=== PATIENT | female | born 1990 | race Caucasian/White ===

== ENCOUNTER 2024-10-16 22:32 | Emergency (ER) | payer MEDICAID ==
[~2024-10-16] VITALS: Ht 172.7 cm; Wt 110.8 kg
[2024-10-16 23:19] LABS: ALANINE AMINOTRANSFERASE 72 U/L (12-78); ALBUMIN 3.5 G/DL (3.4-5.0); ALBUMIN/GLOBULIN RATIO 0.9 (1.1-1.5); ALKALINE PHOSPHATASE 88 IU/L (46-116); ANION GAP 13 (8-16); ASPARTATE AMINO TRANSFERASE 69 U/L (10-37); BILIRUBIN,TOTAL 0.3 MG/DL (0.1-1.0); BLOOD UREA NITROGEN 7 MG/DL (7-18); BUN/CREATININE RATIO 9.2 (10.0-20.0); CALCIUM 9.1 MG/DL (8.5-10.1); CHLORIDE 99 MMOL/L (99-107); CREATININE 0.76 MG/DL (0.40-0.90); GLUCOSE 153 MG/DL (70-104); POTASSIUM 4.1 MMOL/L (3.5-5.1); SODIUM 138 MMOL/L (135-145); TOTAL CARBON DIOXIDE 26.3 MMOL/L (24-32); TOTAL PROTEIN 7.5 G/DL (6.4-8.2); eCRCL 107 ML/MIN; eGFR 88 ML/MIN
[2024-10-16 23:28] LABS: BASOPHILS # (AUTO) 0.1 X10'3 (0-0.2); BASOPHILS % (AUTO) 0.7 % (0-1); EOSINOPHILS # (AUTO) 0.1 X10'3 (0-0.9); EOSINOPHILS % (AUTO) 1.8 % (0-6); HEMOGLOBIN 9.9 g/dl (12.0-16.0); LYMPHOCYTES # (AUTO) 2.6 X10'3 (1.1-4.8); MEAN CORPUSCULAR HEMOGLOBIN 28.7 PG (27.0-31.0); MEAN CORPUSCULAR VOLUME 84.3 FL (78-98); MEAN PLATELET VOLUME 7.5 FL (7.4-10.4); MONOCYTES # (AUTO) 0.6 X10'3 (0-0.9); NEUTROPHILS % (AUTO) 54.5 % (42-75); PLATELET COUNT 339 X10'3 (140-440); RED BLOOD COUNT 3.44 X10'6 (4.20-5.60); RED CELL DISTRIBUTION WIDTH 14.1 % (11.5-14.5); WHITE BLOOD COUNT 7.4 X10'3 (4.5-11.0)
[2024-10-16 23:55] LABS: APTT 22 SECONDS (22-32); PROTHROMBIN TIME 10.4 SECONDS (9.0-12.0)
[2024-10-17 00:17] VITALS: TEMP 98.6
[2024-10-17] MEDS ORDERED: tranexamic acid inj. 1,000 MG in normal saline 100ml IV soln 90 ML IV ONE (00:35)
[2024-10-17] MEDS: normal saline 1000ML IV soln IVB ONE (00:38)
[2024-10-17 00:43] LABS: HEMATOCRIT 29.8 % (35.0-45.0); HEMOGLOBIN 10.2 g/dl (12.0-16.0); MEAN CORPUSCULAR HEMOGLOBIN 28.7 PG (27.0-31.0); MEAN CORPUSCULAR HGB CONC 34.2 g/dL (33.0-36.5); MEAN CORPUSCULAR VOLUME 83.8 FL (78-98); MEAN PLATELET VOLUME 7.4 FL (7.4-10.4); PLATELET COUNT 340 X10'3 (140-440); RED BLOOD COUNT 3.56 X10'6 (4.20-5.60); WHITE BLOOD COUNT 8.9 X10'3 (4.5-11.0)
[2024-10-17] MEDS: tranexamic acid 1gm/0.7% sal. 100 ML IV ONE (01:17)
[2024-10-17] MEDS: magnesium sulf-water 2g/50mL 50 ML IV ONE (01:43)
[2024-10-17] MEDS: normal saline 1000ml 1,000 ML IV ONE (01:50)
[2024-10-17 03:35] LABS: URINE HCG NEGATIVE (NEG)
[2024-10-17] MEDS ORDERED: TRAN650T5 PO (06:04)
[2024-10-17] MEDS ORDERED: [UNRECOGNIZED DRUG - CODE] PO (06:04)
[2024-10-17 06:27] VITALS: BP 154/97; PULSE 108; RESP 16; O2SAT 98
== END 2024-10-17 06:30 | disposition home or self-care (01) ==
LOC: ER 22:32
DX: N92.0 Excessive and frequent menstruation with regular cycle (principal); R00.2 Palpitations; Z88.0 Allergy status to penicillin
CPT/HCPCS: 36415; 76856; 80053; 81025; 85025; 85027; 85610; 85730; 86885; 86900; 86901; 93005; 93976; 96361; 96365; 96368; 99285; J3490; J7030